=== PATIENT | female | born 1990 | race Caucasian/White ===

== ENCOUNTER 2022-07-21 01:59 | Emergency (ER) | payer OTHER, SELFPAY ==
[2022-07-21 02:10] VITALS: BP 131/104; RESP 24; TEMP 36.1; O2SAT 100
--- NOTE | 2022-07-21 02:22 | CRLHL7_ITS ---
For Patients: As a result of the Cures Act, medical imaging exams and procedure reports are released immediately into your electronic medical record. You may view this report before your referring provider. If you have questions, please contact your health care provider. INDICATION: Dyspnea TECHNIQUE: Chest radiograph 1 view COMPARISON: None FINDINGS: The sensitivity and specificity of the exam are severely limited by the patient`s body habitus. Mediastinum: The mediastinum is normal in appearance. The cardiac silhouette is mildly enlarged but may be accentuated by the portable technique. Lung: Small lung volumes are present with mild pulmonary vascular congestion and bibasilar subsegmental atelectasis. No sign of pleural effusion seen. No pneumothorax is identified. Bone and Soft tissue: Mild dextroscoliosis of the inferior thoracic spine is noted. IMPRESSIONS: 1. Small lung volumes are present with mild pulmonary vascular congestion and bibasilar subsegmental atelectasis. 2. The cardiac silhouette is mildly enlarged but may be accentuated by the portable technique. Dictated by Sadiq Choi MD @ 07/21/2022 3:00:48 AM Dictated by: Sadiq Choi MD @ 07/21/2022 03:00:56 (Electronically Signed)
[2022-07-21 02:48] LABS: Strep A DNA Probe* NOT DETECTED (Not Detectd)
[2022-07-21 03:00] VITALS: BP 113/73; PULSE 130; RESP 18; O2SAT 100
[2022-07-21 03:00] LABS: PCR FLU A Negative PCR FLU A (Negative); PCR FLU B Negative PCR FLU B (Negative); PCR RSV Negative PCR RSV (Negative); SARS PCR* Negative SARS-CoV-2 (Negative)
[2022-07-21] MEDS: 0.9 % SODIUM CHLORIDE 1000 ml 1,000 ML IV (03:02)
[2022-07-21] MEDS: diazePAM 5 MG/ML inj IV (03:03)
[2022-07-21 03:08] LABS: HCO3 VBG 22 mmol/L (21-28); PCO2 VBG 27 mmHG (40-50); PO2 VBG 24.6 mmHG (25-47); pH VBG 7.522 (7.32-7.43)
[2022-07-21 03:11] LABS: Hemoglobin* 14.4 gm/dL (12.0-16.0)
[2022-07-21 03:28] LABS: D Dimer Quantitative* 0.46 ug/ml (0.00-0.50)
[2022-07-21 03:37] LABS: Chloride* 106 mmol/L (96-114); Potassium* 3.4 mmol/L (3.6-5.1); Sodium* 140 mmol/L (135-149)
[2022-07-21 03:39] LABS: Creatinine* 0.8 mg/dL (0.5-1.5); Estimated Glomerular Filt Rate 102 ml/min
[2022-07-21 03:40] LABS: Blood Urea Nitrogen* 8 mg/dL (5-24); Carbon Dioxide* 19 mmol/L (20-32); Ethanol* < 0.01 % (0.01-0.03); Glucose* 121 mg/dL (60-115)
[2022-07-21 03:41] LABS: Calcium* 9.3 mg/dL (8.4-10.6)
[2022-07-21 03:43] LABS: C Reactive Protein* 3.7 mg/dL (0.5-1.0)
[2022-07-21 04:00] VITALS: BP 158/101; PULSE 97; RESP 18; O2SAT 98
--- NOTE | 2022-07-21 04:10 | ED_ITS ---
HPI - General Adult General Chief complaint: Unspecified Complaint, Adult Stated complaint: Confusion Time Seen by Provider: 07/21/22 02:17 History of Present Illness HPI narrative: 31-year-old woman accompanied by her with complaint of difficulty speaking thinking ?my brain doesn't work? over the last couple of hours. She does report tingling in her thighs hands and feet little cramping as well. Has been breathing fast. Starting about 3 days ago has had increasing sore throat and body aches cold symptoms with rhinorrhea. Has been laying around over the last couple of days. Started to have increasing shortness of breath and was seeming more out of it. 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 As noted arrives hyperventilating. No chest pain. Breathing fast but not exactly short of air. Related Data Allergies Allergy/AdvReac Type Severity Reaction Status Date / Time Penicillins Allergy Verified 07/21/22 02:15 Review of Systems Status of ROS: Reports: 10 or more systems reviewed and unremarkable except as noted in History and below PFSH PFS Social History Smoking Status: Never smoker Do you use any of these nicotine containing products: None How often do you have a drink containing alcohol: monthly or less How often do you have six or more drinks on one occasion: Never AUDIT-C Alcohol total score: 1 Non-prescribed substance use: denies use service: No Exam Narrative: Exam Narrative: Well nourished. Does seem spacey. Tucked under a ball cap. She is clearly tachypneic but not terribly labored in breathing. Skin is warm and dry. Oropharynx sticky. Neck is supple without LA. There is no supraclavicular crep itus. Trachea midline. Lungs are clear. Heart is tachycardic with a regular rhythm. Abdomen is soft and nontender. She is moving all extremities without difficulty. Well perfused peripherally. Cranial nerves 2-12 look to be intact. Const: Vital Signs, click to edit/add: Vital Signs - 24 hr 07/21/22 02:10 07/21/22 04:00 07/21/22 03:00 Temperature 97.0 F L Pulse Rate [Left] 97 130 H Respiratory Rate 24 18 18 Blood Pressure [Ri ght Upper Arm] 131/104 H 158/101 H 113/73 Pulse Oximetry 100 98 100 Oxygen Delivery Me thod Room Air Room Air Room Air Documenting provider has reviewed patient's vital signs: yes Course Vital Signs Vital signs: Initial Vital Signs Temperature 97.0 F L 07/21/22 02:10 Temperature Source Temporal Artery Scan 07/21/22 02:10 Respiratory Rate 24 07/21/22 02:10 Blood Pressure 131/104 H 07/21/22 02:10 Blood Pressure Mean 113 07/21/22 02:10 Blood Pressure Position Semi-Fowlers 07/21/22 02:10 Pulse Oximetry 100 07/21/22 02:10 Oxygen Delivery Method 07/21/22 02:10 Vital Signs Temperature 97.0 F L 07/21/22 02:10 Respiratory Rate 24 07/21/22 02:10 Blood Pressure 131/104 H 07/21/22 02:10 Pulse Oximetry 100 07/21/22 02:10 Oxygen Delivery Method 07/21/22 02:10 Temperature 97.0 F L 07/21/22 02:10 Pulse Rate 97 07/21/22 04:00 Respiratory Rate 18 07/21/22 04:00 Blood Pressure 158/101 H 07/21/22 04:00 Pulse Oximetry 98 07/21/22 04:00 Oxygen Delivery Method 07/21/22 04:00 Medical Decision Making MDM Narrative Medical decision making narrative: I discussed the panic attack is at least secondary symptom here if not primary. Will screen though for any evidence of pneumonia or pulmonary embolus. Given duration of symptoms and appears to be poor fluid intake did order for normal saline IV and initially lorazepam but out of stock changed to diazepam. Markedly improved during time in emergency department. Monitored without event otherwise. On reassessment is calm and easily conversant. Labs were unremarkable though respiratory alkalosis evidenced in VBGs. Chest x-ray reviewed by me looks to be WNL. Triple screen negative Lab Data Labs: Lab Results 07/21/22 07/21/22 07/21/22 Range/Units 02:15 02:15 02:58 Hgb 14.4 (12.0-16.0) gm/dL D-Dimer Quant (PE/DVT) (0.00-0.50) ug/ml VBG pH (7.32-7.43) VBG pCO2 (40-50) mmHG VBG pO2 (25-47) mmHG VBG HCO3 (21-28) mmol/L Sodium (135-149) mmol/L Potassium (3.6-5.1) mmol/L Chloride (96-114) mmol/L Carbon Dioxide (20-32) mmol/L BUN (5-24) mg/dL Creatinine (0.5-1.5) mg/dL Estimated GFR ml/min Glucose (60-115) mg/dL Calcium (8.4-10.6) mg/dL C-Reactive Protein (0.5-1.0) mg/dL Ethyl Alcohol (0.01-0.03) % SARS-CoV-2 (PCR) Negative SARS-CoV-2 (Negative) Influenza Type A (PCR) Negative PCR FLU A (Negative) Influenza Type B (PCR) Negative PCR FLU B (Negative) RSV (PCR) Negative PCR RSV (Negative) Group A Strep DNA NOT DETECTED (Not Detectd) 07/21/22 07/21/22 07/21/22 Range/Units 02:58 02:58 02:58 Hgb (12.0-16.0) gm/dL D-Dimer Quant (PE/DVT) 0.46 (0.00-0.50) ug/ml VBG pH 7.522 H (7.32-7.43) VBG pCO2 27 L (40-50) mmHG VBG pO2 24.6 L (25-47) mmHG VBG HCO3 22 (21-28) mmol/L Sodium 140 (135-149) mmol/L Potassium 3.4 L (3.6-5.1) mmol/L Chloride 106 (96-114) mmol/L Carbon Dioxide 19 L (20-32) mmol/L BUN 8 (5-24) mg/dL Creatinine 0.8 (0.5-1.5) mg/dL Estimated GFR 102 ml/min Glucose 121 H (60-115) mg/dL Calcium 9.3 (8.4-10.6) mg/dL C-Reactive Protein 3.7 H (0.5-1.0) mg/dL Ethyl Alcohol < 0.01 L (0.01-0.03) % SARS-CoV-2 (PCR) (Negative) Influenza Type A (PCR) (Negative) Influenza Type B (PCR) (Negative) RSV (PCR) (Negative) Group A Strep DNA (Not Detectd) Discharge Plan Discharge Clinical Impression: URI (upper respiratory infection), Anxiety Patient Disposition: Home w/ Parent or Adult Condition: Improved Additional Instructions: Does seem as if you have had a bit of a panic attack today. As far as your cold symptoms go, hydrate. Rest. I would expect you to be feeling better soon. Return for increasing shortness of breath, persistent chest pain. Can take up to 800 mg of ibuprofen or up to 1000 mg of acetaminophen per dose. Stand Alone Forms: [facility] Info Instructions
== END 2022-07-21 04:23 | disposition home or self-care (01) ==
PROVIDERS: Emergency Provider Family Medicine
DX: F41.9 Anxiety disorder, unspecified (principal); J06.9 Acute upper respiratory infection, unspecified
CPT/HCPCS: 36415; 71045; 80048; 80306; 82077; 82803; 85018; 85379; 86140; 87502; 87634; 87635; 87651; 96361; 96374; 99284; J3360; J7030